=== PATIENT | male | born 1950 | race American Indian/Alaskan Native ===

== ENCOUNTER 2018-05-24 19:13 | Emergency (ER) | payer MEDICARE ==
[2018-05-24] MEDS ORDERED: NACL 0.9% 1000 ML 1,000 ML IV ONE (19:40)
[2018-05-24 21:09] LABS: Basophils # (Auto) 0.2 K/mm3 (0.0-0.1); Basophils % (Auto) 2.6 % (0.0-1.8); Eosinophils # (Auto) 0.2 K/mm3 (0.0-0.4); Eosinophils % (Auto) 3.1 % (0.0-4.3); Hematocrit 39.8 % (35.5-45.6); Hemoglobin 13.1 gm/dl (11.8-15.2); Lymphocytes # (Auto) 2.6 K/mm3 (1.2-5.4); Lymphocytes % (Auto) 42.6 % (13.4-35.0); Mean Corpuscular HGB Conc 33 % (32-34); Mean Corpuscular Hemoglobin 30 pg (28-32); Mean Corpuscular Volume 91 fl (84-94); Monocytes # (Auto) 0.5 K/mm3 (0.0-0.8); Monocytes % (Auto) 8.4 % (0.0-7.3); Platelet Count 191 K/mm3 (140-440); Red Blood Count 4.35 M/mm3 (3.65-5.03); Red Cell Distribution Width 14.2 % (13.2-15.2)
[2018-05-24 21:17] LABS: Bacteria,Urine 1+ /HPF (Negative); Bilirubin,Urine NEG (Negative); Blood,Urine NEG (Negative); Protein,Urine <15 mg/dL mg/dL (Negative); Urobilinogen,Urine < 2.0 mg/dL (<2.0)
[2018-05-24 21:18] LABS: Color,Urine Dark Yellow (Yellow)
[2018-05-24 21:58] LABS: Alanine Aminotransferase 16 units/L (7-56); Albumin 4.1 g/dL (3.9-5); BUN/Creatinine Ratio 20; Blood Urea Nitrogen 22 mg/dL (9-20); Calcium 9.3 mg/dL (8.4-10.2); Hemolysis Index 10
--- NOTE | 2018-05-24 22:56 | Emergency Department Report ---
HPI - General Chief Complaint: Abdominal Pain Time Seen by Provider: 05/24/18 21:42 - HPI HPI: 68-year-old male presents to the emergency department with complaint of some pain and swelling down towards the right groin. It started on Monday, 2 days ago, and he saw a nurse at his job and was told that he should probably see a physician or go to the emergency department. He says that he waited but eventually the pain did decrease and went away, as did the swelling. However today both the pain and swelling returned and he had to leave work due to the discomfort and came in to be seen. He took some Tylenol [id number] for his discomfort. Since getting into the emergency room the symptoms have resolved. He denies any fever, nausea, vomiting, problems with bowel or bladder. He has a past medical history of hypertension and some borderline and/or diet controlled diabetes. His primary care physician is a Dr. Sanjana Louie. ED Past Medical Hx - Past Medical History Hx COPD: Yes - Surgical History Past Surgical History?: Yes Additional Surgical History: Umbilical hernia 1988 - Social History Smoking Status: Never Smoker Substance Use Type: None - Medications Home Medications: Home Medications Medication Instructions Recorded Confirmed Last Taken Type HYDROcodone/APAP 5-325 [[place] 1 each PO Q6HR PRN #10 tablet 05/24/18 Unknown Rx 5/325] Nitrofurantoin Monohyd/M-Cryst 100 mg PO BID #14 capsule 05/24/18 Unknown Rx [Macrobid 100 mg Capsule] ED Review of Systems ROS: Stated complaint: ABD PAIN/GROIN PAIN Other details as noted in HPI Comment: All other systems reviewed and negative Constitutional: denies: chills, fever Eyes: denies: eye pain, eye discharge, vision change ENT: denies: ear pain, throat pain Respiratory: denies: cough, shortness of breath, wheezing Cardiovascular: denies: chest pain, palpitations Gastrointestinal: denies: nausea, vomiting Genitourinary: other (pelvic / inguinal pain). denies: dysuria, discharge Musculoskeletal: denies: back pain, joint swelling, arthralgia Skin: denies: rash, lesions Neurological: denies: headache, weakness, paresthesias Physical Exam - Physical Exam Vital Signs: Vital Signs 05/24/18 19:33 Temperature 98.3 F Pulse Rate 81 Respiratory 16 Rate Blood Pressure 132/86 O2 Sat by Pulse 100 Oximetry Physical Exam: GENERAL: The patient is well-developed well-nourished. HENT: Normocephalic. Atraumatic. Patient has moist mucous membranes. EYES: Extraocular motions are intact. Pupils equal reactive to light bilaterally. NECK: Supple. Trachea is midline. CHEST/LUNGS: Clear to auscultation. There is no respiratory distress noted. HEART/CARDIOVASCULAR: Regular. There is no tachycardia. There is no murmur. ABDOMEN: Abdomen is soft, nontender. Patient has normal bowel sounds. There is no abdominal distention. SKIN: Skin is warm and dry. NEURO: The patient is awake, alert, and oriented. The patient is cooperative. The patient has no focal neurologic deficits. The patient has normal speech. MUSCULOSKELETAL: There is no tenderness or deformity. There is no limitation range of motion. There is no evidence of acute injury. : There is no testicular pain or swelling, no penile pain or swelling or any genital lesions. No palpable direct or indirect hernia ED Course Vital Signs 05/24/18 19:33 Temperature 98.3 F Pulse Rate 81 Respiratory 16 Rate Blood Pressure 132/86 O2 Sat by Pulse 100 Oximetry ED Medical Decision Making - Lab Data Result diagrams: 05/24/18 20:51 05/24/18 20:51 - Medical Decision Making Patient presents with complaint of some right groin pain and swelling that has been going on intermittently since Monday but worsened earlier today. However all of the symptoms resolved upon presentation to the emergency department this evening. It sounds most consistent with a inguinal hernia that has reduced. Patient's labs were unremarkable except for a urinary tract infection. We had a long discussion regarding hernia and the difference between something that is reducible and something that is angulated/incarcerated. At this time the patient appears to have reduced the hernia spontaneously. Vital signs stable throughout his ED course. I planned to get a abdominal x-ray but the patient says that he is feeling better and did not want it done at this time. He was given a referral for general surgery to establish care and follow-up regarding the hernia. He will return to the ER with any worsening of his symptoms or any acute distress. - Differential Diagnosis indirect/direct hernia, UTI, appendicitis, colitis Critical Care Time: No Critical care attestation.: If time is entered above; I have spent that time in minutes in the direct care of this critically ill patient, excluding procedure time. ED Disposition Clinical Impression: Inguinal hernia Qualifiers: Obstruction and gangrene presence: without obstruction or gangrene Laterality: unilateral Recurrence: recurrent Qualified Code(s): K40.91 - Unilateral inguinal hernia, without obstruction or gangrene, recurrent UTI (urinary tract infection) Qualifiers: Urinary tract infection type: acute cystitis Hematuria presence: without hematuria Qualified Code(s): N30.00 - Acute cystitis without hematuria Disposition: TO HOME OR SELFCARE Is pt being admited?: No Condition: Stable Instructions: Urinary Tract Infection in Men (ED), Inguinal Hernia (ED) Additional Instructions: It is always recommended that you follow up with your primary care physician. I have given you a referral for a local general surgeon, Dr. Anton, to follow up regarding your recurrent hernia. I recommend that you make an appointment soon to establish care so you can discuss this hernia and possible outpatient surgical repair. However, he should return to the emergency department immediately with any worsening of her symptoms, if the hernia and/or swelling is unable to be reduced or put back in, with any intractable abdominal or groin pain, or with any acute distress. Try and limit any heavy lifting, having hard bowel movements, prolonged sitting or squatting, or anything that might increase intra-abdominal pressure. I have given you a referral for a local urologist, Dr. Sylvester, in case you would like to follow up regarding your urinary tract infection. You have been prescribed a medication that is sedating and therefore should not be taken prior to driving, working, and responsible for children and in no way should be mixed with alcohol of any quantity. Prescriptions: HYDROcodone/APAP 5-325 [[place] 5/325] 1 each PO Q6HR PRN #10 tablet PRN Reason: Pain Nitrofurantoin Monohyd/M-Cryst [Macrobid 100 mg Capsule] 100 mg PO BID #14 capsule Referrals: PRIMARY CAREMD [Primary Care Provider] - 3-5 Days TIFFANIE SYLVESTER MD [Staff Physician] - 3-5 Days CHRISTOPHER ANTON MD [Staff Physician] - AJIT Time of Disposition: 23:05
[2018-05-24] MEDS ORDERED: MACROBID PO ONE (22:57)
[2018-05-24 23:38] VITALS: BP 146/83
== END 2018-05-24 23:39 | disposition home or self-care (01) ==
LOC: ED 19:13
DX: K40.90 Unilateral inguinal hernia, without obstruction or gangrene, not specified as recurrent (principal); N39.0 Urinary tract infection, site not specified; J44.9 Chronic obstructive pulmonary disease, unspecified
CPT/HCPCS: 36415; 80053; 81001; 85025; 99283